=== PATIENT | female | born 2000 | race African-American/Black ===

== ENCOUNTER 2022-11-24 08:22 | Emergency (ER) | payer OTHER, SELFPAY ==
[~2022-11-24] VITALS: Ht 142.2 cm; Wt 59.1 kg
[2022-11-24 08:26] VITALS: BP 128/93
[2022-11-24] MEDS: ONDANSETRON 4MG ORAL DISINTEGRATING TAB PO ONE (11:22)
== END 2022-11-24 11:40 | disposition left against medical advice (07) ==
LOC: M ED 08:22
DX: F10.288 Alcohol dependence with other alcohol-induced disorder (principal); R11.0 Nausea; Z53.9 Procedure and treatment not carried out, unspecified reason